=== PATIENT | male | born 1945 | race Caucasian/White ===

== ENCOUNTER 2019-12-06 11:12 | Day surgery (SDC) | payer MEDICARE ==
[~2019-12-06] VITALS: Ht 180.3 cm; Wt 87.0 kg
[2019-12-06] MEDS ORDERED: CHLORHEXIDINE 15 ML UDC ONE (12:38)
[2019-12-06 12:41] VITALS: BP 120/80
[2019-12-06 12:53] LABS: MICROSCOPIC AUTO
[2019-12-06] MEDS ORDERED: OMEP20TA62 PO (12:58)
[2019-12-06] MEDS ORDERED: MULT-717 PO (12:58)
[2019-12-06] MEDS ORDERED: IRON1TAB60 PO (12:58)
[2019-12-06] MEDS ORDERED: LACTATED RINGERS 1,000 ML IV SCH (13:00)
[2019-12-06] MEDS ORDERED: CHLORHEXIDINE 15 ML UDC MM ONE (13:00)
[2019-12-06] MEDS ORDERED: GEMCITABINE HCL 1,000 MG in SODIUM CHLORIDE 0.9% 23.7 ML IS ONE ×2 (13:00→13:30)
[2019-12-06] MEDS ORDERED: FENTANYL PF 100 MCG/2ML ONE (13:28)
[2019-12-06] MEDS ORDERED: LIDOCAINE PF 2%, 5ML ONE (13:31)
[2019-12-06] MEDS ORDERED: PROPOFOL 10 MG/ML, 20ML ONE (13:59)
[2019-12-06] MEDS ORDERED: CEFAZOLIN 1,000 MG ONE (13:59)
[2019-12-06] MEDS ORDERED: ONDANSETRON 2MG/ML, 2ML ONE (13:59)
[2019-12-06] MEDS ORDERED: DEXAMETHASONE 4 MG/ML, 1ML ONE (13:59)
[2019-12-06] MEDS ORDERED: PROMETHAZINE 12.5 MG SUPP PR PRN (14:00)
[2019-12-06] MEDS ORDERED: HYDROmorphone 1 MG/ML, 1ML INJ IVPush PRN (14:00)
[2019-12-06] MEDS ORDERED: OXYcodone 5 MG/5 ML ORAL.SOL UDC PO PRN (14:00)
[2019-12-06] MEDS ORDERED: PROMETHAZINE 25 MG SUPP PR PRN (14:00)
[2019-12-06] MEDS ORDERED: LORazepam 2 MG/ML, 1ML IVPush PRN (14:00)
[2019-12-06] MEDS ORDERED: ACETAMINOPHEN 325 MG TABLET PO PRN (14:00)
[2019-12-06] MEDS ORDERED: hydrALAzine 20 MG/ML, 1ML IV PRN (14:00)
[2019-12-06] MEDS ORDERED: FENTANYL PF 100 MCG/2ML IV PRN (14:00)
[2019-12-06] MEDS ORDERED: LABETALOL 5MG/ML, 20ML IV PRN (14:00)
[2019-12-06] MEDS ORDERED: METHOCARBAMOL 1,000 MG in DEXTROSE 5% 100 ML IV PRN (14:00)
[2019-12-06] MEDS ORDERED: ONDANSETRON 2MG/ML, 2ML IVPush PRN (14:00)
[2019-12-06] MEDS ORDERED: OXYcodone/APAP 5/325MG TABLET PO PRN (14:30)
== END 2019-12-06 16:30 | disposition home or self-care (01) ==
LOC: OUT 11:12
PROVIDERS: ATTEND Urology
DX: C67.5 Malignant neoplasm of bladder neck (principal); N40.0 Benign prostatic hyperplasia without lower urinary tract symptoms; K21.9 Gastro-esophageal reflux disease without esophagitis; Z98.890 Other specified postprocedural states; Z20.828 Contact with and (suspected) exposure to other viral communicable diseases; Z79.899 Other long term (current) drug therapy; Z72.89 Other problems related to lifestyle; Z87.891 Personal history of nicotine dependence
CPT/HCPCS: 51720; 52235; 81001; 87077; 87086; 87186; 87635; 88305; 93005; J0690; J1100; J2405; J2704; J3010; J7120; J9201

== ENCOUNTER 2020-03-20 09:39 | Day surgery (SDC) | payer MEDICARE ==
[~2020-03-20] VITALS: Ht 180.3 cm; Wt 88.6 kg
[~2020-03-20 09:39] MED LIST: IRON1TAB60 PO; MULT-717 PO; OMEP20TA62 PO
[2020-03-20] MEDS ORDERED: GEMCITABINE HCL 1,000 MG in SODIUM CHLORIDE 0.9% 23.7 ML BLADIN ONE (10:30)
[2020-03-20 10:36] VITALS: BP 163/81
[2020-03-20] MEDS ORDERED: CHLORHEXIDINE 15 ML UDC ONE (10:54)
[2020-03-20] MEDS ORDERED: LACTATED RINGERS 1,000 ML IV SCH (11:30)
[2020-03-20] MEDS ORDERED: CHLORHEXIDINE 15 ML UDC MM ONE (11:30)
[2020-03-20] MEDS ORDERED: FENTANYL PF 100 MCG/2ML ONE ×2 (13:29→15:04)
[2020-03-20] MEDS ORDERED: LIDOCAINE-MPF 2% ,5ML ONE (13:29)
[2020-03-20] MEDS ORDERED: PROPOFOL 10 MG/ML, 20ML ONE (13:29)
[2020-03-20] MEDS ORDERED: CEFAZOLIN 1,000 MG ONE ×2 (13:37)
[2020-03-20] MEDS ORDERED: ONDANSETRON 2MG/ML, 2ML ONE (14:27)
[2020-03-20] MEDS ORDERED: ONDANSETRON 2MG/ML, 2ML IV PRN (14:30)
[2020-03-20] MEDS ORDERED: FENTANYL PF 100 MCG/2ML IV PRN (15:00)
[2020-03-20] MEDS ORDERED: ONDANSETRON 2MG/ML, 2ML IVPush PRN (15:00)
[2020-03-20] MEDS ORDERED: PROMETHAZINE 25 MG/ML, 1ML IVPush PRN (15:00)
== END 2020-03-20 16:30 | disposition home or self-care (01) ==
LOC: OUT 09:39
PROVIDERS: ATTEND Urology
DX: C67.9 Malignant neoplasm of bladder, unspecified (principal); N99.71 Accidental puncture and laceration of a genitourinary system organ or structure during a genitourinary system procedure; N30.20 Other chronic cystitis without hematuria; N31.9 Neuromuscular dysfunction of bladder, unspecified; N13.30 Unspecified hydronephrosis; Z20.822 Contact with and (suspected) exposure to COVID-19; Z79.899 Other long term (current) drug therapy; Z79.891 Long term (current) use of opiate analgesic; Z98.890 Other specified postprocedural states; Z80.8 Family history of malignant neoplasm of other organs or systems; Y83.8 Other surgical procedures as the cause of abnormal reaction of the patient, or of later complication, without mention of misadventure at the time of the procedure
CPT/HCPCS: 52240; 87635; 88305; 93005; C1769; J0690; J2405; J2704; J3010; J7120

== ENCOUNTER 2020-03-23 18:48 | Inpatient (IN) | payer MEDICARE ==
[~2020-03-23] VITALS: Ht 180.3 cm; Wt 108.9 kg
--- NOTE | 2020-03-23 19:00 | NUR ---
pt arrived per ems, vss, complaints of pain in bladder. ems/ stated that "he had bladder surgery 3 days ago here at [facility]. has a barajas that is now displaced from thy bladder. SR 55 in route". edema 3-4+ in left leg, #20 barajas in. pt states that he has had no urine in the leg bag for 24 hrs
[2020-03-23] MEDS ORDERED: SODIUM CHLORIDE FLUSH 10ML SYR IVF ONE (19:30)
[2020-03-23] MEDS ORDERED: ONDANSETRON 2MG/ML, 2ML IVPush ONE (19:30)
[2020-03-23] MEDS ORDERED: MORPHINE SULFATE 4 MG/ML, 1ML IVPush PRN (19:30)
[2020-03-23] MEDS ORDERED: MORPHINE SULFATE 4 MG/ML, 1ML ONE (19:36)
[2020-03-23] MEDS ORDERED: ONDANSETRON 2MG/ML, 2ML ONE (19:36)
--- NOTE | 2020-03-23 19:38 | NUR ---
admin [pain meds,
--- NOTE | 2020-03-23 20:08 | NUR ---
spoke to madina buenrostro and demurrage agent to verfiey that we want a mri without contrast. pt on way to mri
[2020-03-23 20:36] LABS: BASOPHILS % (AUTO) 0 % (0-1); EOSINOPHILS % (AUTO) 0 % (1-7); LYMPHOCYTES % (AUTO) 7 % (22-44); MEAN CORPUSCULAR HGB CONC 33.2 g/dL (33.2-36.2); MEAN PLATELET VOLUME 7.8 fL (7.4-10.4); MONOCYTES % (AUTO) 6 % (2-9); NEUTROPHILS % (AUTO) 86 % (42-75); PLATELET COUNT 180 x10^3/uL (130-400); RED BLOOD COUNT 4.68 x10^6/uL (4.38-5.82); RED CELL DISTRIBUTION WIDTH 15.4 % (9.4-14.8)
[2020-03-23 20:47] LABS: ALANINE AMINOTRANSFERASE 10 U/L (12-78); ALBUMIN 2.7 g/dL (3.4-5.0); ANION GAP 9 mmol/L (5-15); CALCIUM 8.3 mg/dL (8.5-10.1); CHLORIDE 109 mmol/L (98-107); CREATININE 4.97 mg/dL (0.7-1.3)
--- NOTE | 2020-03-23 20:49 | NUR ---
SPOKE TO MD ABOUT REMOVING ARROYO AND REPLACING IT WITH A 22 COUDE PER UROLOGY'S REQUEST.
[2020-03-23 20:55] LABS: ALKALINE PHOSPHATASE 97 U/L (45-117); BILIRUBIN,TOTAL 0.5 mg/dL (0.2-1.0); TOTAL PROTEIN 6.9 g/dL (6.4-8.2)
[2020-03-23 20:57] LABS: MD SCAN
--- NOTE | 2020-03-23 21:19 | NUR ---
pt back from mri, vss, removed 20 barajas and started a 22 coude with 30cc of ns per order. drained 350ml of urine. no distress.
[2020-03-23] MEDS ORDERED: ONDANSETRON 2MG/ML, 2ML IVPush PRN (22:00)
[2020-03-23] MEDS ORDERED: ACETAMINOPHEN 325 MG TABLET PO PRN (22:00)
[2020-03-23] MEDS ORDERED: BISACODYL 10 MG SUPP PR PRN (22:00)
[2020-03-23] MEDS ORDERED: morphine SULFATE 10 MG/ML, 1ML IVPush PRN (22:00)
[2020-03-23] MEDS ORDERED: SODIUM CHLORIDE 0.9% 1,000 ML IV SCH (22:00)
[2020-03-23] MEDS: SODIUM CHLORIDE 0.9% 1,000 ML IV SCH (22:36)
[2020-03-23 22:44] VITALS: BP 150/71
[2020-03-23] MEDS ORDERED: PROMETHAZINE 25 MG/ML, 1ML IM PRN (23:30)
[2020-03-24 02:08] VITALS: BP 160/81
[2020-03-24] MEDS: SODIUM CHLORIDE 0.9% 1,000 ML IV SCH ×3 (05:34→21:54)
[2020-03-24 06:43] LABS: BASOPHILS % (AUTO) 1 % (0-1); EOSINOPHILS % (AUTO) 2 % (1-7); LYMPHOCYTES % (AUTO) 16 % (22-44); MEAN CORPUSCULAR HEMOGLOBIN 29.1 pg (27.5-34.5); MEAN CORPUSCULAR HGB CONC 33.3 g/dL (33.2-36.2); MEAN PLATELET VOLUME 7.8 fL (7.4-10.4); MONOCYTES % (AUTO) 9 % (2-9); NEUTROPHILS % (AUTO) 73 % (42-75); PLATELET COUNT 163 x10^3/uL (130-400); RED BLOOD COUNT 4.89 x10^6/uL (4.38-5.82); RED CELL DISTRIBUTION WIDTH 15.4 % (9.4-14.8)
[2020-03-24 06:49] VITALS: BP 133/71
[2020-03-24 06:51] LABS: MD NO
[2020-03-24 06:54] LABS: ANION GAP 12 mmol/L (5-15); CALCIUM 8.4 mg/dL (8.5-10.1); CHLORIDE 110 mmol/L (98-107); CREATININE 5.32 mg/dL (0.7-1.3)
[2020-03-24] MEDS: MULTIVITAMINS/MINERALS TABLET PO SCH (08:22)
[2020-03-24] MEDS: PANTOPRAZOLE 40MG TABLET PO SCH (08:22)
[2020-03-24] MEDS ORDERED: TEMPLATE NON-FORMULARY MED. (Iron,Carbonyl/Vit C/Vit B12/Fa** (Iron 100 Plus Tablet**) 1 T PO SCH (09:00)
[2020-03-24 12:05] VITALS: BP 146/66
[2020-03-24 13:37] LABS: ANION GAP 12 mmol/L (5-15); CALCIUM 8.5 mg/dL (8.5-10.1); CHLORIDE 112 mmol/L (98-107); CREATININE 5.66 mg/dL (0.7-1.3)
[2020-03-24 19:48] VITALS: BP 161/61
[2020-03-25 01:23] VITALS: BP 156/66
[2020-03-25] MEDS: SODIUM CHLORIDE 0.9% 1,000 ML IV SCH ×3 (05:20→23:38)
[2020-03-25 07:40] VITALS: BP 149/67
[2020-03-25 08:49] LABS: ANION GAP 13 mmol/L (5-15); CALCIUM 8.1 mg/dL (8.5-10.1); CHLORIDE 112 mmol/L (98-107); CREATININE 5.95 mg/dL (0.7-1.3)
[2020-03-25] MEDS: PANTOPRAZOLE 40MG TABLET PO SCH (09:13)
[2020-03-25] MEDS: MULTIVITAMINS/MINERALS TABLET PO SCH (09:13)
[2020-03-25] MEDS ORDERED: LIDOCAINE 1%, 10ML ONE (11:12)
[2020-03-25 12:08] LABS: ANION GAP 10 mmol/L (5-15); CHLORIDE 114 mmol/L (98-107); CREATININE 5.99 mg/dL (0.7-1.3)
[2020-03-25 12:12] VITALS: BP 153/76
[2020-03-25] MEDS ORDERED: FLUMAZENIL 0.1 MG/1 ML, 5ML ONE (13:16)
[2020-03-25] MEDS ORDERED: MIDAZOLAM 1 MG/ML, 5ML ONE (13:16)
[2020-03-25] MEDS ORDERED: FENTANYL PF 100 MCG/2ML ONE (13:16)
[2020-03-25] MEDS ORDERED: NALOXONE 1 MG/ML, 2ML ONE (13:17)
[2020-03-25] MEDS ORDERED: VISIPAQUE 320MG/ML, 50ML BOTTLE ONE (13:50)
[2020-03-25 16:37] LABS: ANION GAP 11 mmol/L (5-15); CALCIUM 8.2 mg/dL (8.5-10.1); CHLORIDE 114 mmol/L (98-107); CREATININE 4.89 mg/dL (0.7-1.3)
[2020-03-25 18:30] VITALS: BP 184/63
[2020-03-25 19:18] VITALS: BP 171/73
[2020-03-25 21:33] VITALS: BP 152/72
[2020-03-26 01:18] VITALS: BP 165/75
[2020-03-26 05:55] VITALS: BP 159/75
[2020-03-26 06:39] VITALS: BP 166/72
[2020-03-26] MEDS: SODIUM CHLORIDE 0.9% 1,000 ML IV SCH ×2 (07:20→15:17)
[2020-03-26 08:43] LABS: ANION GAP 9 mmol/L (5-15); CALCIUM 8.4 mg/dL (8.5-10.1); CHLORIDE 114 mmol/L (98-107); CREATININE 1.46 mg/dL (0.7-1.3)
[2020-03-26] MEDS: MULTIVITAMINS/MINERALS TABLET PO SCH (09:33)
[2020-03-26] MEDS: PANTOPRAZOLE 40MG TABLET PO SCH (09:33)
[2020-03-26 12:51] VITALS: BP 148/76
[2020-03-26 19:55] VITALS: BP 164/78
[2020-03-26] MEDS ORDERED: ACET325T26 PO (21:48)
[2020-03-27 01:50] VITALS: BP 174/61
[2020-03-27 04:50] LABS: BASOPHILS % (AUTO) 1 % (0-1); EOSINOPHILS % (AUTO) 5 % (1-7); LYMPHOCYTES % (AUTO) 20 % (22-44); MEAN CORPUSCULAR HEMOGLOBIN 28.8 pg (27.5-34.5); MEAN CORPUSCULAR HGB CONC 33.3 g/dL (33.2-36.2); MEAN PLATELET VOLUME 7.7 fL (7.4-10.4); MONOCYTES % (AUTO) 9 % (2-9); NEUTROPHILS % (AUTO) 66 % (42-75); PLATELET COUNT 171 x10^3/uL (130-400); RED BLOOD COUNT 4.56 x10^6/uL (4.38-5.82); RED CELL DISTRIBUTION WIDTH 15.1 % (9.4-14.8)
[2020-03-27 04:56] LABS: ANION GAP 6 mmol/L (5-15); CALCIUM 8.4 mg/dL (8.5-10.1); CHLORIDE 114 mmol/L (98-107); CREATININE 0.83 mg/dL (0.7-1.3)
[2020-03-27 05:06] LABS: MD NO
[2020-03-27 07:22] VITALS: BP 168/88
[2020-03-27] MEDS: MULTIVITAMINS/MINERALS TABLET PO SCH (10:12)
[2020-03-27] MEDS: PANTOPRAZOLE 40MG TABLET PO SCH (10:12)
[2020-03-27 12:58] VITALS: BP 162/75
[2020-03-27] MEDS: SODIUM CHLORIDE 0.9% 1,000 ML IV SCH (13:00)
== END 2020-03-27 13:50 | disposition home health service (06) | DRG 683 ==
LOC: ED 20:27 → EDIP 21:33 → 4NW 22:06 → DCLOUNGE 03-27 13:40
PROVIDERS: ADMIT Family Medicine; ATTEND Internal Medicine
PROC: 0T9130Z Drainage of Left Kidney with Drainage Device, Percutaneous Approach (ICD-10-PCS; principal; 2020-03-25)
PROC: 0T9030Z Drainage of Right Kidney with Drainage Device, Percutaneous Approach (ICD-10-PCS; 2020-03-25)
DX: N17.0 Acute kidney failure with tubular necrosis (principal); G82.20 Paraplegia, unspecified; E87.2 Acidosis; N13.30 Unspecified hydronephrosis; L89.629 Pressure ulcer of left heel, unspecified stage; Z60.2 Problems related to living alone; E87.5 Hyperkalemia; Z87.891 Personal history of nicotine dependence; Z85.51 Personal history of malignant neoplasm of bladder; Z93.6 Other artificial openings of urinary tract status; Z99.3 Dependence on wheelchair
CPT/HCPCS: 36415; 50432; 72148; 76770; 76942; 80048; 80053; 83605; 83735; 84100; 84145; 85025; 85651; 86140; 87040; 96374; 96375; 96376; 99156; 99157; 99285; C1894; G0378; J2250; J2405; J3010; Q9967; C1729; C1769; J2270; J2310; J7030

== ENCOUNTER 2020-04-15 17:03 | Emergency (ER) | payer MEDICARE ==
[~2020-04-15] VITALS: Ht 180.3 cm; Wt 87.0 kg
[~2020-04-15 17:03] MED LIST changes: +ACET325T26 PO
--- NOTE | 2020-04-15 17:24 | NUR ---
PT TRANSFER FROM [facility] FOR LEAKING LEFT NEPHROSTOMY TUBE. TUBE HAS BEEN LEAKING FOR 3 DAYS. PT DENIES ANY OTHER COMPLAINTS. HEALING RIGHT NEPHROSTOMY TUBE SIGHT COVERED, CLEAN DRY INTACT. INDWELLING ARROYO DRAINING CLEAR YELLOW URINE. PT CONNECTED TO MONITORING. MD AT BEDSIDE FOR ASSESSMENT. APPEARS HARDWARE, CONNECTING TUBE AND BAG,, IS WHAT IS LEAKING. WILL CALL IR FOR ASSESSMENT AND CHANGE, PER MD INSTRUCTIONS.
--- NOTE | 2020-04-15 17:51 | NUR ---
IR MOTOR DRIVER TODAY. ERMD PLACED ORDER FOR IR TO CHECK NEPHROSTOMY TUBE.
[2020-04-15 17:52] LABS: MICROSCOPIC INDICATED
--- NOTE | 2020-04-15 17:53 | NUR ---
This RN has taken over patient. Pt is calm and cooperative
[2020-04-15 17:59] LABS: BASOPHILS % (AUTO) 1 % (0-1); EOSINOPHILS % (AUTO) 11 % (1-7); LYMPHOCYTES % (AUTO) 21 % (22-44); MEAN CORPUSCULAR HEMOGLOBIN 29.2 pg (27.5-34.5); MEAN CORPUSCULAR HGB CONC 34.1 g/dL (33.2-36.2); MONOCYTES % (AUTO) 9 % (2-9); NEUTROPHILS % (AUTO) 58 % (42-75); PLATELET COUNT 307 x10^3/uL (130-400); RED BLOOD COUNT 4.63 x10^6/uL (4.38-5.82); RED CELL DISTRIBUTION WIDTH 14.9 % (9.4-14.8)
[2020-04-15 18:00] LABS: MD NO
[2020-04-15 18:10] LABS: ALBUMIN 3.3 g/dL (3.4-5.0); ANION GAP 9 mmol/L (5-15); CALCIUM 9.3 mg/dL (8.5-10.1); CHLORIDE 105 mmol/L (98-107); CREATININE 0.89 mg/dL (0.7-1.3)
[2020-04-15] MEDS ORDERED: LIDOCAINE 1%, 10ML ONE (18:58)
[2020-04-15] MEDS ORDERED: VISIPAQUE 270 MG/ML, 50ML BOTTLE ONE (20:00)
--- NOTE | 2020-04-15 20:30 | NUR ---
Throughput RN: pt to be d/c'd. pt needs ride back to [employer]. [facility] unable to tonight because it would take away [facility] crew fro at least 6 hours, and pt called girlfriend and she is unble to come tonight to pick him up as well. pt has 2 nephrostomy tubes and barajas. not safe discharge at this time. erp, public message service supervisor, and charge aware.
[2020-04-15] MEDS ORDERED: CEFDINIR 300 MG CAPSULE PO ONE (21:00)
[2020-04-15] MEDS ORDERED: CEFDINIR 300 MG CAPSULE ONE (21:15)
--- NOTE | 2020-04-15 21:26 | NUR ---
Pt had neph tube replaced in IR. Pt back to room. Pt A&O, has no complaints. Pt given warm blanket. Pt given sandwhich and fluids. Pt medicated per order. Pt made comfortable and has no further reqeusts at this time. Working on finding ride for patient to be DC'd. Will continue to monitor.
--- NOTE | 2020-04-16 00:24 | NUR ---
Pt with no changes. Will be DC'd when patient has a ride. Pt WC bound, lives 3 hrs away. Has nobody to come pick him up tonight, and transport not available unitl tomorrow. ER truck shop supervisor aware and has spent much time attempting to arrange transportation. Pt will remain in ER. Pt repostitioned, remains A&O. Will continue to monitor.
--- NOTE | 2020-04-16 04:12 | NUR ---
Pt repositioned,po fluids given. Neph bag drained. Pt A&O, no complaints, no needs stated. VSS Will continue to monitor.
--- NOTE | 2020-04-16 06:28 | NUR ---
Pt able to get a hold of sister, who will be coming to get patient. Pt remains stable, A&O. Coffee given. Pt with no further needs.
--- NOTE | 2020-04-16 06:50 | NUR ---
Report received from PATRICIA Delgado and care assumed. [email or web address] and lift. Diet tray for breakfast ordered. Pt is already d/c'd, but assessment completed anyway.
--- NOTE | 2020-04-16 07:15 | NUR ---
Pt's nephrostomy tube drng bags emptied of 250mL dark yellow uop. Discussed plan and awaiting breakfast tray at this time. Pt A/O x4 and happy to hear his ride is on the way.
--- NOTE | 2020-04-16 08:04 | NUR ---
Breakfast tray brought into pt, assisted with set up and half cup of black coffee provided as well per pt request. Pt feeding himself without issue.
--- NOTE | 2020-04-16 09:36 | NUR ---
Pt provided a cellphone to call his family to check on their progress towards coming to pick him up. He states they are still a couple of hours away at this time. Pt denies need for anything at this time, denies pain and offered repositioning in bed but declined stating he feels comfortable at this moment.
--- NOTE | 2020-04-16 10:23 | NUR ---
Pt repositioned to R side with pillows and ensured his position was comfortable. Pt denies further need at this time.
--- NOTE | 2020-04-16 10:52 | NUR ---
Report given to PATRICIA Zepeda and care transferred.
--- NOTE | 2020-04-16 10:52 | NUR ---
REPORT RECEIVED FROM YANELY GOMEZ. ASSUMING CARE AT THIS TIME. PT RESTING COMFORTABLY ON GURNEY. AWAITING FOR PT RIDE.
[2020-04-16 11:45] VITALS: BP 148/75
== END 2020-04-16 11:46 | disposition home or self-care (01) ==
LOC: ED 18:06
DX: T83.022A Displacement of nephrostomy catheter, initial encounter (principal); N30.01 Acute cystitis with hematuria; Z85.51 Personal history of malignant neoplasm of bladder
CPT/HCPCS: 36415; 50435; 80048; 81001; 82040; 85025; 87086; 99285; C1729; C1769; J3490; Q9966

== ENCOUNTER 2020-10-17 11:07 | Day surgery (SDC) | payer MEDICARE ==
[~2020-10-17] VITALS: Ht 180.3 cm; Wt 81.2 kg
[2020-10-17 12:34] VITALS: BP 157/70
[2020-10-17] MEDS ORDERED: LACTATED RINGERS 1,000 ML IV SCH (13:00)
[2020-10-17] MEDS ORDERED: CHLORHEXIDINE 15 ML UDC PO ONE (13:00)
[2020-10-17 13:15] LABS: MICROSCOPIC AUTO
[2020-10-17] MEDS ORDERED: ALBUTEROL SULFATE 2.5 MG/3 ML NPPB PRN (14:00)
[2020-10-17] MEDS ORDERED: PROMETHAZINE 25 MG/ML, 1ML IVPush PRN (14:00)
[2020-10-17] MEDS ORDERED: MEPERIDINE/PF 25MG/0.5ML IVPush PRN (14:00)
[2020-10-17] MEDS ORDERED: LABETALOL 5MG/ML, 20ML IV PRN (14:00)
[2020-10-17] MEDS ORDERED: OXYcodone 5 MG/5 ML ORAL.SOL UDC PO PRN (14:00)
[2020-10-17] MEDS ORDERED: HYDROmorphone 1 MG/ML, 1ML INJ IVPush PRN (14:00)
[2020-10-17] MEDS ORDERED: FENTANYL PF 100 MCG/2ML IV PRN (14:00)
[2020-10-17] MEDS ORDERED: ACETAMINOPHEN 325 MG TABLET PO PRN (14:00)
[2020-10-17] MEDS ORDERED: GEMCITABINE HCL 1,000 MG in SODIUM CHLORIDE 0.9% 23.7 ML IS ONE (14:00)
[2020-10-17] MEDS ORDERED: PROPOFOL 10 MG/ML, 20ML ONE (14:08)
[2020-10-17] MEDS ORDERED: CEFAZOLIN 1,000 MG ONE (14:08)
[2020-10-17] MEDS ORDERED: OPIUM/BELLADONNA SUPP.RECT 16.2-30 MG ONE (14:48)
[2020-10-17] MEDS ORDERED: ONDANSETRON 2MG/ML, 2ML IV PRN (15:00)
[2020-10-17] MEDS ORDERED: OXYcodone/APAP 5/325MG TABLET PO PRN (15:00)
== END 2020-10-17 16:35 | disposition home or self-care (01) ==
LOC: OUT 11:07
PROVIDERS: ATTEND Urology
DX: C67.9 Malignant neoplasm of bladder, unspecified (principal); N31.9 Neuromuscular dysfunction of bladder, unspecified; N13.30 Unspecified hydronephrosis; R33.9 Retention of urine, unspecified; G82.20 Paraplegia, unspecified; I10 Essential (primary) hypertension; K21.9 Gastro-esophageal reflux disease without esophagitis; Z20.822 Contact with and (suspected) exposure to COVID-19; Z79.891 Long term (current) use of opiate analgesic; Z79.899 Other long term (current) drug therapy; Z80.8 Family history of malignant neoplasm of other organs or systems
CPT/HCPCS: 51720; 52240; 81001; 87086; 87635; 93005; J0690; J2704; J7120; J9201